=== PATIENT | male | born 1965 | race Caucasian/White ===

== ENCOUNTER 2017-03-02 08:06 | Day surgery (SDC) | payer OTHER ==
[~2017-03-02] VITALS: Ht 188 cm; Wt 82.1 kg
[~2017-03-02 08:06] MED LIST: NEURONTIN 300300 MG PO; PAMELOR10 MG PO; TRAMADOL HCL E100 M1 PO
[2017-03-02 08:49] VITALS: BP 124/70; Ht 188 cm; Wt 82.1 kg
--- NOTE | 2017-03-02 15:39 | NUR ---
1430--PT VOIDS, IV DC'D. ROMULO QUINONES 1451--PT REPORTS PAIN AGTER DRESSING, RATES PAIN 8/10. PT REPORTS HAVING TAKEN HYDROCODONE IN THE PAST. NORCO 5/325MG X2 GIVEN PO FOR PAIN. DISCHARGE INSTRUCTIONS GIVEN, PT VERBALIZES UNDERSTANDING. ROMULO QUINONES 1500--DISCHARGE INSTRUCTIONS GIVEN, PT VERBALIZES UNDERSTANDING. PT OFF UNIT VIA WC. ROMULO QUINONES
--- NOTE | 2017-03-04 08:42 | OP ---
PATIENT NAME: ANGUS PADILLA MEDICAL RECORD: [id number] :67 LOCATION:D.OPS ADMISSION DATE: SURGEON: GILBERTO BUCKLEY MD DATE OF OPERATION: 03/02/2017 PREOPERATIVE DIAGNOSIS: Symptomatic gallstones POSTOPERATIVE DIAGSOSES: Symptomatic gallstones with acute cholecystitis and hepatomegaly. Adhesions to the gallbladder. PROCEDURES: 1. Laparoscopic cholecystectomy. 2. Intraoperative cholangiography without immediate surgeon interpretation. 3. An 18-gauge core needle liver biopsy. SURGEON: Gilberto Buckley MD BUGGY LOADER: None. BLOOD LOSS: Minimal. ANESTHESIA: General. COMPLICATIONS: None. The indication for liver biopsy was hepatomegaly. OPERATIVE COURSE: The patient was conveyed to the operating room electively on 03/02/2017. General anesthesia was induced by the anesthesia staff. The abdomen was sterilely prepped and draped. A small skin cathie was accomplished in the left upper quadrant. Veress needle was inserted through the skin cathie into the peritoneal cavity. CO2 insufflation was begun. Once a sufficient pneumoperitoneum had been achieved, a 5-mm trocar was inserted through the incision in the right upper quadrant. Under direct internal vision utilizing a television camera, a 5-mm trocar was inserted through an incision in the epigastrium. A 12-mm trocar was inserted through an incision at the umbilicus. Another 5-mm trocar was inserted through an incision far laterally in the right upper quadrant. During insertion of the Veress needle and all trocars, there appeared to have been no injury into the bowels, any intraperitoneal or retroperitoneal structures. The indication for the liver biopsy was hepatomegaly. Under laparoscopic guidance, I percutaneously accessed the right upper quadrant utilizing an 18-gauge core needle liver biopsy device. Cores were obtained over the convexity of the liver. The biopsy sites were made hemostatic with electrocautery. I then advanced the cholangiogram trocar. The gallbladder was distended. It was somewhat erythematous and appeared to be consistent with acute cholecystitis. I punctured the fundus of the gallbladder. I aspirated bile. I then injected dye. Initially, I could not get dye to flow out of the cystic duct into the common bile duct. I desufflated the gallbladder several times and then reinsufflated. I was then able to push a stone out of the cystic duct and it appeared that the stone the exited the common bile duct through the ampulla immediately. There was a sudden sanford of the dye into the common bile duct and OPERATIVE REPORT [id number] ANGUS PADILLAWAYNE into the hepatic radicals. The cholangiographic images were sent to the radiologist for interpretation and the radiologist called back and it was his conclusion as well that there was a stone in the cystic duct and that it likely was pushed under force into the common bile duct and out through the ampulla. He noted no filling defects within the common bile duct. I then aspirated bile and removed the cholangiogram trocar. The gallbladder was retracted cephalad. The infundibulum was grasped and retracted laterally. Adhesions to the gallbladder and these were taken down with the electrocautery. Blunt dissection was begun in the triangle of Calot. One cystic artery and 1 cystic duct were identified. These were clipped multiply and divided between clips. The gallbladder was then excised from its bed in the liver. It was placed with an Endobag retrieval device and was withdrawn through the umbilical fascia defect. The 12-mm trocar was replaced and the abdomen was reinsufflated. I irrigated and aspirated in the right upper quadrant. There was no bleeding even at low pressure of 8. The Eulogio-Sarabjit suture closure device and 0 Vicryl sutures were used to close the umbilical fascia. The umbilical skin was approximated with interrupted 4-0 Vicryl Rapide sutures. The other skin incisions were closed with multiple intracuticular 3-0 Vicryls. Benzoin and Steri-Strips were applied. The patient was then extubated and conveyed to post-anesthesia care unit where he was in stable condition. He will be dismissed home on hydrocodone for pain. I will see him in the office in 2-3 weeks. TRANSINT:[id number] Voice Confirmation ID: [id number] DOCUMENT ID: [id number] GILBERTO BUCKLEY MD at 0842 CC: JAEC HILL and FERCHO MERINO MD [id number] DICTATION DATE: 03/02/17 1211 FRONT OFFICE SUPERVISOR: 03/02/[address] [facility] 03/02/17 [place] [address]
== END 2017-03-02 15:00 | disposition home or self-care (01) ==
LOC: D.OPS 08:06 → D.PAN 11:30 → D.OPS 11:30
DX: K80.11 Calculus of gallbladder with chronic cholecystitis with obstruction (principal); Z01.812 Encounter for preprocedural laboratory examination